=== PATIENT | male | born 1965 | race African-American/Black ===

== ENCOUNTER 2017-08-06 15:38 | Inpatient (IN) | payer OTHER ==
[2017-08-06 16:21] VITALS: BMI 29.7
--- NOTE | 2017-08-06 19:25 | HP ---
CIWA Score - CIWA Score Nausea/Vomitin-Mild Nausea/No Vomiting Muscle Tremors: 4-Moderate,w/Arms Extend Anxiety: 4-Mod. Anxious/Guarded Agitation: 4-Moderately Restless Paroxysmal Sweats: 1-Minimal Palms Moist Orientation: 0-Oriented Tacttile Disturbances: 0-None Auditory Disturbances: 0-None Visual Disturbances: 0-None Headache: 1-Very Mild CIWA-Ar Total Score: 15 Admission ROS BHS - HPI Chief Complaint: withdrawal sx Allergies/Adverse Reactions: Allergies Allergy/AdvReac Type Severity Reaction Status Date / Time No Known Allergies Allergy Verified 12/18/13 18:35 History of Present Illness: 51 years old male with long history of alcohol xanax cocaine marijuna nicotine dependence daugherty sasthma positive ppd and bipolar ii is admitted to detox Exam Limitations: No Limitations - Ebola screening Have you traveled outside of the country in the last 21 days: No (N) Have you had contact with anyone from an Ebola affected area: No Have you been sick,other than usual withdrawal symptoms: No Do you have a fever: No - Review of Systems Constitutional: Chills, Weight Stable EENT: reports: No Symptoms Reported Respiratory: reports: No Symptoms reported Cardiac: reports: No Symptoms Reported GI: reports: Nausea, Poor Fluid Intake, Abdominal cramping : reports: No Symptoms Reported Musculoskeletal: reports: Back Pain (2010) Integumentary: reports: No Symptoms Reported Neuro: reports: Tremors Endocrine: reports: No Symptoms Reported Hematology: reports: No Symptoms Reported Psychiatric: reports: Judgement Intact, Orientated x3, Anxious, Depressed Other Systems: Reviewed and Negative Patient History - Patient Medical History Hx Anemia: No Hx Asthma: Yes Hx Chronic Obstructive Pulmonary Disease (COPD): No Hx Cancer: No Hx Cardiac Disorders: No Hx Congestive Heart Failure: No Hx Hypertension: No Hx Hypercholesterolemia: No Hx Pacemaker: No HX Cerebrovascular Accident: No Hx Seizures: No Hx Dementia: No Hx Diabetes: No Hx Gastrointestinal Disorders: No Hx Liver Disease: No Hx Genitourinary Disorders: No Hx Sexually Transmitted Disorders: No Hx Renal Disease (ESRD): No Hx Thyroid Disease: No Hx Human Immunodeficiency Virus (HIV): No Hx Hepatitis C: No Hx Depression: No Hx Suicide Attempt: No Hx Bipolar Disorder: Yes Hx Schizophrenia: No - Patient Surgical History Past Surgical History: No Hx Neurologic Surgery: No Hx Cataract Extraction: No Hx Cardiac Surgery: No Hx Lung Surgery: No Hx Breast Surgery: No Hx Breast Biopsy: No Hx Abdominal Surgery: No Hx Appendectomy: No Hx Cholecystectomy: No Hx Genitourinary Surgery: No Hx Orthopedic Surgery: No - PPD History Previous Implant?: Yes Documented Results: Positive w/o proof Implanted On Prior [facility] Admission?: No PPD to be Administered?: No - Smoking Cessation Smoking history: Current every day smoker Have you smoked in the past 12 months: Yes Aproximately how many cigarettes per day: 3 Cigars Per Day: 0 Hx Chewing Tobacco Use: No Initiated information on smoking cessation: Yes 'Breaking Loose' booklet given: 08/06/17 - Substance & Tx. History Hx Alcohol Use: Yes Hx Substance Use: Yes Substance Use Type: Alcohol, Cocaine, Marijuana, Tranquilizers Hx Substance Use Treatment: Yes (2013) - Substances Abused Alcohol Route: Oral Frequency: Daily Amount used: LIQUOR- 3 PINTS, BEER- 2 SIX PACK Age of first use: 14 Date of Last Use: 08/06/17 Crack Route: Smoking Frequency: Daily Amount used: $200 Age of first use: 18 Date of Last Use: 08/06/17 Family Disease History - Family Disease History Family Disease History: Other: Father (no contact), Mother (ADDICTED TO ETOH AND ), Brother (no brother), Sister (anemia) Admission Physical Exam S - Vital Signs Vital Signs: Vital Signs - 24 hr 08/06/17 16:19 Temperature 96.7 F L Pulse Rate 78 Respiratory 18 Rate Blood Pressure 138/90 - Physical General Appearance: Yes: Nourished, Appropriately Dressed, Moderate Distress, Tremorous, Irritable, Sweating, Anxious HEENTM: Yes: Hearing grossly Normal, Normal ENT Inspection, Normocephalic, Normal Voice Respiratory: Yes: Chest Non-Tender, No Respiratory Distress, No Accessory Muscle Use, Wheezing, Expiration Neck: Yes: Supple, Crepetius Breast: Yes: No Discharge Cardiology: Yes: Regular Rhythm, Regular Rate, S1, S2 Abdominal: Yes: Normal Bowel Sounds, Non Tender, Soft Genitourinary: Yes: Within Normal Limits Back: Yes: Normal Inspection Musculoskeletal: Yes: full range of Motion, Gait Steady, Back pain Extremities: Yes: Normal Inspection, Normal Range of Motion, Tremors Neurological: Yes: Fully Oriented, Alert, Motor Strength 5/5, Normal Response, Depressed Affect Integumentary: Yes: Warm Lymphatic: Yes: Within Normal Limits - Diagnostic (1) Alcohol dependence with uncomplicated withdrawal Current Visit: Yes Status: Acute (2) Cannabis dependence, uncomplicated Current Visit: Yes Status: Chronic (3) Cocaine dependence, uncomplicated Current Visit: Yes Status: Chronic (4) Nicotine dependence Current Visit: Yes Status: Acute Qualifiers: Nicotine product type: cigarettes Substance use status: in withdrawal Qualified Code(s): F17.213 - Nicotine dependence, cigarettes, with withdrawal (5) Asthma Current Visit: Yes Status: Chronic Qualifiers: Asthma severity: moderate Asthma complication type: with status asthmaticus (6) Positive PPD, treated Current Visit: Yes Status: Resolved (7) Bipolar II disorder Current Visit: Yes Status: Suspected (8) Chronic back pain Current Visit: Yes Status: Chronic Qualifiers: Back pain location: low back pain Back pain laterality: bilateral Sciatica presence: without sciatica Qualified Code(s): M54.5 - Low back pain; G89.29 - Other chronic pain; G89.29 - Other chronic pain Cleared for Admission [facility] - Detox or Rehab [facility] Level of Care: Medically Managed Detox Regimen/Protocol: Librium [facility] Breath Alcohol Content Breath Alcohol Content: 0 Urine Drug Screen - Results Drug Screen Negative: No Urine Drug Screen Results: THC-Marijuana, RO-Cocaine, BZO-Benzodiazepines, TCA- Tricyclic Antidepress
[2017-08-06] MEDS ORDERED: guaiFENesin/D-METHORPHAN HB 10 ML UNIT-DOSE CUPS PO PRN (19:27)
[2017-08-06] MEDS ORDERED: P-EPHED 60MG/TRIPROLIDI 2.5MG TABLET PO PRN (19:27)
[2017-08-06] MEDS ORDERED: ACETAMINOPHEN 325 MG TABLET (FP) PO PRN (19:27)
[2017-08-06] MEDS ORDERED: MAGNESIUM HYDROX 2400MG/30ML ORAL SUSPENSION 30 ML CUP PO PRN (19:27)
[2017-08-06] MEDS ORDERED: MENTHOL/PHENOL 1 EACH UD MM PRN (19:27)
[2017-08-06] MEDS ORDERED: IBUPROFEN 400 MG TABLET (FP) PO PRN (19:27)
[2017-08-06] MEDS ORDERED: LOPERAMIDE HCL 2 MG CAPSULE PO PRN (19:27)
[2017-08-06] MEDS ORDERED: chlordiazePOXIDE HCL 25 MG CAPSULE PO PRN (19:27)
[2017-08-06] MEDS ORDERED: NICOTINE POLACRILEX 2 MG GUM BC PRN (19:27)
[2017-08-06] MEDS ORDERED: MAG HYDROX/AL HYDROX/SIMETH 30 ML UNIT-DOSE CUP PO PRN (19:27)
[2017-08-06] MEDS ORDERED: MAGNESIUM CITRATE 300 ML BOTTLE PO PRN (19:27)
[2017-08-06] MEDS ORDERED: ALBUTEROL SO4 18 GM HFA INHALER IH PRN (19:28)
[2017-08-06] MEDS ORDERED: BACLOFEN 10 MG TABLET (FP) PO PRN (19:31)
[2017-08-06] MEDS: chlordiazePOXIDE HCL 25 MG CAPSULE PO SCH (22:31)
[2017-08-06] MEDS: THIAMINE HCL 100 MG TABLET (FP) PO SCH (22:31)
[2017-08-06] MEDS: CLOTRIMAZOLE 1% CREAM 15 GM TUBE TP SCH (23:10)
[2017-08-06] MEDS: LIDOCAINE PATCH REMOVAL MC SCH (23:11)
[2017-08-07] MEDS: chlordiazePOXIDE HCL 25 MG CAPSULE PO SCH ×4 (05:24→22:13)
--- NOTE | 2017-08-07 07:42 | CONSULT ---
[facility] Psychiatric Consult - Data Date of interview: 08/07/17 Admission source: [facility] Identifying data: This is 51 years old male with history of p[sychiatric hospitalization, intoxicated with: Alcohol,, Cocaine, Cannabis and Nicotine Substance Abuse History: - Smoking Cessation. Smoking history: Current every day smoker. Have you smoked in the past 12 months: Yes. Aproximately how many cigarettes per day: 3. Cigars Per Day: 0. Hx Chewing Tobacco Use: No. Initiated information on smoking cessation: Yes. 'Breaking Loose' booklet given : 08/06/17. - Substance & Tx. History. Hx Alcohol Use: Yes. Hx Substance Use : Yes. Substance Use Type: Alcohol, Cocaine, Marijuana, Tranquilizers. Hx Substance Use Treatment: Yes (2013). - Substances Abused. Alcohol. Route: Oral. Frequency: Daily. Amount used: LIQUOR- 3 PINTS, BEER- 2 SIX PACK. Age of first use: 14. Date of Last Use: 08/06/17. Crack. Route: Smoking. Frequency: Daily. Amount used: $200. Age of first use: 18. Date of Last Use: 08/06/17 Medical History: Asthma PPD +hisotry, LBP Psychiatric History: PATIENT REPORTS HISTORY OF BIPOLAR DISORDER WITH MOST RECENT PSYCHIATRIC AMDISSION ON: 2015 AT [facility],. Patient reports taking prior to admission: Seroquel 200mg po qhs. Depakote 500mg po bid Physical/Sexual Abuse/Trauma History: Denies Additional Comment: Seroquel 200mg po qhs. Depakote 500mg po bid Mental Status Exam - Mental Status Exam Alert and Oriented to: Person Cognitive Function: Fair Patient Appearance: Unkempt Mood: Anxious Affect: Mood Congruent Patient Behavior: Cooperative Speech Pattern: Delayed Voice Loudness: Normal Thought Process: Goal Oriented Thought Disorder: Being Controlled Hallucinations: Denies Suicidal Ideation: Denies Homicidal Ideation: Denies Insight/Judgement: Fair Sleep: Difficulty falling asleep Appetite: Fair Muscle strength/Tone: Normal Gait/Station: Normal Additional Comments: Seroquel 200mg po qhs. Depakote 500mg po bid Psychiatric Findings - Problem List ([place] 1, 2,3) (1) Bipolar I disorder Current Visit: Yes Status: Suspected (2) Alcohol dependence with uncomplicated withdrawal Current Visit: Yes Status: Acute (3) Nicotine dependence Current Visit: Yes Status: Acute Qualifiers: Nicotine product type: cigarettes Substance use status: in withdrawal Qualified Code(s): F17.213 - Nicotine dependence, cigarettes, with withdrawal (4) Cannabis dependence, uncomplicated Current Visit: Yes Status: Chronic (5) Cocaine dependence, uncomplicated Current Visit: Yes Status: Chronic (6) Bipolar II disorder Current Visit: Yes Status: Suspected (7) Cocaine dependence Current Visit: No Status: Acute - Initial Treatment Plan Initial Treatment Plan: Seroquel 200mg po qhs. Depakote 500mg po bid
--- NOTE | 2017-08-07 10:03 | EKG ---
Test Reason : Blood Pressure : / mmHG Vent. Rate : 088 BPM Atrial Rate : 088 BPM P-R Int : 182 ms QRS Dur : 112 ms QT Int : 372 ms P-R-T Axes : 071 024 058 degrees QTc Int : 450 ms NORMAL SINUS RHYTHM NORMAL ECG NO PREVIOUS ECGS AVAILABLE Confirmed by BENNY FAIRCHILD MD ([id number]) on 08/07/2017 10:03:05 AM Referred By: Confirmed By:BENNY FAIRCHILD MD
[2017-08-07 10:12] LABS: MCH 31.4 pg (25.7-33.7); MEAN CELL VOLUME 95.2 fl (80-96); MEAN PLT VOLUME 8.2 fl (7.5-11.1); PLATELET COUNT 363 K/MM3 (134-434); RDW 15.1 % (11.9-15.9); WHITE BLOOD COUNT 6.5 K/mm3 (4.0-10.0)
[2017-08-07] MEDS: DIVALPROEX SODIUM 500 MG TABLET E.C. PO SCH ×2 (10:24→22:13)
[2017-08-07] MEDS: NAPROXEN 500 MG TABLET (FP) PO PRN (10:24)
[2017-08-07] MEDS: cloNIDine HCL 0.1 MG TABLET PO PRN (10:24)
[2017-08-07] MEDS: PRENATAL VITAMINS W/ FOLIC ACID TABLET (FP) PO SCH (10:24)
[2017-08-07] MEDS: CLOTRIMAZOLE 1% CREAM 15 GM TUBE TP SCH ×2 (10:25→22:15)
[2017-08-07] MEDS: NICOTINE 14 MG/24 HOURS TOPICAL PATCH TD SCH (10:25)
[2017-08-07] MEDS: LIDOCAINE 5% TOPICAL PATCH TP SCH (10:28)
[2017-08-07 10:46] LABS: PH,URINE 5.5 (5.0-8.0); URINE APPEARANCE CLEAR; URINE BILIRUBIN NEGATIVE (NEGATIVE); URINE BLOOD NEGATIVE (NEGATIVE); URINE COLOR YELLOW; URINE GLUCOSE (UA) NEGATIVE (NEGATIVE); URINE KETONE TRACE (NEGATIVE); URINE NITRITE NEGATIVE (NEGATIVE); URINE PROTEIN TRACE (NEGATIVE); URINE UROBILINOGEN 0.2 mg/dL (0.2-1.0)
[2017-08-07 10:52] LABS: ALBUMIN 3.3 g/dl (3.4-5.0); ALK PHOS 66 U/L (45-117); ANION GAP 6 (8-16); BILIRUBIN,TOTAL 0.5 mg/dL (0.2-1.0); CALCIUM 8.4 mg/dL (8.5-10.1); CO2 29 mmol/L (21-32); CREATININE 1.1 mg/dL (0.7-1.3); GLUCOSE,RANDOM 77 mg/dL (74-106); SGOT/AST 16 U/L (15-37); SGPT/ALT 20 U/L (12-78); TOT PROT 6.2 g/dl (6.4-8.2)
--- NOTE | 2017-08-07 12:51 | PN ---
[facility] CIWA - CIWA Score Nausea/Vomitin-No Nausea/No Vomiting Muscle Tremors: 4-Moderate,w/Arms Extend Anxiety: 4-Mod. Anxious/Guarded Agitation: 4-Moderately Restless Paroxysmal Sweats: 3 Orientation: 0-Oriented Tacttile Disturbances: 0-None Auditory Disturbances: 0-None Visual Disturbances: 0-None Headache: 0-None Present CIWA-Ar Total Score: 15 BHS Progress Note (SOAP) Subjective: irritable agitation sweats interrupted sleep Objective: 08/07/17 12:55 Vital Signs Temperature 97.7 F 08/07/17 10:00 Pulse Rate 73 08/07/17 10:00 Respiratory Rate 18 08/07/17 10:00 Blood Pressure 115/76 08/07/17 10:00 O2 Sat by Pulse Oximetry (%) Laboratory Tests 08/06/17 08/07/17 08/07/17 20:45 07:00 07:00 WBC 6.5 RBC 4.04 Hgb 12.7 Hct 38.5 MCV 95.2 MCH 31.4 MCHC 33.0 RDW 15.1 Plt Count 363 D MPV 8.2 Sodium 145 Potassium 4.6 Chloride 110 H Carbon Dioxide 29 Anion Gap 6 L BUN 13 D Creatinine 1.1 Creat Clearance w eGFR > 60 Random Glucose 77 Calcium 8.4 L Total Bilirubin 0.5 D AST 16 D ALT 20 D Alkaline Phosphatase 66 Total Protein 6.2 L Albumin 3.3 L Urine Color Yellow Urine Appearance Clear Urine pH 5.5 Ur Specific [place] 1.025 Urine Protein Trace H Urine Glucose (UA) Negative Urine Ketones Trace H Urine Blood Negative Urine Nitrite Negative Urine Bilirubin Negative Urine Urobilinogen 0.2 RPR Titer 08/07/17 07:00 WBC RBC Hgb Hct MCV MCH MCHC RDW Plt Count MPV Sodium Potassium Chloride Carbon Dioxide Anion Gap BUN Creatinine Creat Clearance w eGFR Random Glucose Calcium Total Bilirubin AST ALT Alkaline Phosphatase Total Protein Albumin Urine Color Urine Appearance Urine pH Ur Specific [place] Urine Protein Urine Glucose (UA) Urine Ketones Urine Blood Urine Nitrite Urine Bilirubin Urine Urobilinogen RPR Titer Nonreactive aaox3 ambulating no acute distress Assessment: 08/07/17 12:55 withdrawal sx Plan: continue detox increase fluids
[2017-08-07 21:13] LABS: URINE LEUK ESTERASE Negative (NEGATIVE)
[2017-08-07] MEDS: QUEtiapine FUMARATE 200 MG TABLET PO SCH (22:13)
[2017-08-07] MEDS: THIAMINE HCL 100 MG TABLET (FP) PO SCH (22:14)
[2017-08-07] MEDS: LIDOCAINE PATCH REMOVAL MC SCH (22:14)
[2017-08-08] MEDS: chlordiazePOXIDE HCL 25 MG CAPSULE PO SCH ×3 (05:28→17:37)
[2017-08-08] MEDS: LIDOCAINE 5% TOPICAL PATCH TP SCH (10:00)
[2017-08-08] MEDS: PRENATAL VITAMINS W/ FOLIC ACID TABLET (FP) PO SCH (10:32)
[2017-08-08] MEDS: NAPROXEN 500 MG TABLET (FP) PO PRN (10:32)
[2017-08-08] MEDS: DIVALPROEX SODIUM 500 MG TABLET E.C. PO SCH ×2 (10:32→22:23)
[2017-08-08] MEDS: cloNIDine HCL 0.1 MG TABLET PO PRN (10:32)
[2017-08-08] MEDS: NICOTINE 14 MG/24 HOURS TOPICAL PATCH TD SCH (10:35)
[2017-08-08] MEDS: CLOTRIMAZOLE 1% CREAM 15 GM TUBE TP SCH ×2 (10:54→22:23)
--- NOTE | 2017-08-08 12:35 | PN ---
[facility] CIWA - CIWA Score Nausea/Vomitin-No Nausea/No Vomiting Muscle Tremors: 3 Anxiety: 2 Agitation: 3 Paroxysmal Sweats: 3 Orientation: 0-Oriented Tacttile Disturbances: 0-None Auditory Disturbances: 0-None Visual Disturbances: 0-None Headache: 0-None Present CIWA-Ar Total Score: 11 [facility] Progress Note (SOAP) Subjective: irritable agitation tired Objective: 08/08/17 12:34 Vital Signs Temperature 97.7 F 08/08/17 09:28 Pulse Rate 68 08/08/17 09:28 Respiratory Rate 18 08/08/17 09:28 Blood Pressure 122/83 08/08/17 09:28 O2 Sat by Pulse Oximetry (%) Laboratory Tests 08/06/17 08/07/17 08/07/17 20:45 07:00 07:00 WBC 6.5 RBC 4.04 Hgb 12.7 Hct 38.5 MCV 95.2 MCH 31.4 MCHC 33.0 RDW 15.1 Plt Count 363 D MPV 8.2 Sodium 145 Potassium 4.6 Chloride 110 H Carbon Dioxide 29 Anion Gap 6 L BUN 13 D Creatinine 1.1 Creat Clearance w eGFR > 60 Random Glucose 77 Calcium 8.4 L Total Bilirubin 0.5 D AST 16 D ALT 20 D Alkaline Phosphatase 66 Total Protein 6.2 L Albumin 3.3 L Urine Color Yellow Urine Appearance Clear Urine pH 5.5 Ur Specific [place] 1.025 Urine Protein Trace H Urine Glucose (UA) Negative Urine Ketones Trace H Urine Blood Negative Urine Nitrite Negative Urine Bilirubin Negative Urine Urobilinogen 0.2 Ur Leukocyte Esterase Negative Valproic Acid RPR Titer 08/07/17 08/07/17 07:00 07:00 WBC RBC Hgb Hct MCV MCH MCHC RDW Plt Count MPV Sodium Potassium Chloride Carbon Dioxide Anion Gap BUN Creatinine Creat Clearance w eGFR Random Glucose Calcium Total Bilirubin AST ALT Alkaline Phosphatase Total Protein Albumin Urine Color Urine Appearance Urine pH Ur Specific [place] Urine Protein Urine Glucose (UA) Urine Ketones Urine Blood Urine Nitrite Urine Bilirubin Urine Urobilinogen Ur Leukocyte Esterase Valproic Acid 8.320 L RPR Titer Nonreactive aaox3 ambulating no acute distress Assessment: 08/08/17 12:35 withdrawal sx Plan: continue detox
[2017-08-08] MEDS: QUEtiapine FUMARATE 200 MG TABLET PO SCH (22:23)
[2017-08-08] MEDS: chlordiazePOXIDE 5 MG CAPSULE PO SCH (22:23)
[2017-08-08] MEDS: THIAMINE HCL 100 MG TABLET (FP) PO SCH (22:23)
[2017-08-08] MEDS: LIDOCAINE PATCH REMOVAL MC SCH (22:55)
[2017-08-09] MEDS: chlordiazePOXIDE 5 MG CAPSULE PO SCH ×3 (06:24→18:08)
[2017-08-09] MEDS: NAPROXEN 500 MG TABLET (FP) PO PRN (07:12)
[2017-08-09] MEDS: CLOTRIMAZOLE 1% CREAM 15 GM TUBE TP SCH ×2 (10:23→22:32)
[2017-08-09] MEDS: DIVALPROEX SODIUM 500 MG TABLET E.C. PO SCH ×2 (10:23→22:31)
[2017-08-09] MEDS: NICOTINE 14 MG/24 HOURS TOPICAL PATCH TD SCH (10:23)
[2017-08-09] MEDS: LIDOCAINE 5% TOPICAL PATCH TP SCH (10:23)
[2017-08-09] MEDS: cloNIDine HCL 0.1 MG TABLET PO PRN (10:24)
[2017-08-09] MEDS: PRENATAL VITAMINS W/ FOLIC ACID TABLET (FP) PO SCH (10:24)
--- NOTE | 2017-08-09 10:51 | PN ---
BHS Progress Note (SOAP) Subjective: nausea, sweats, interrupted sleep-, anxiety, tremors Objective: 08/09/17 10:50 Vital Signs - 8 hr 08/09/17 08/09/17 08/09/17 03:30 06:38 10:00 Temperature 98.2 F 99 F Pulse Rate 89 88 Respiratory 18 18 20 Rate Blood Pressure 127/71 120/67 Laboratory Tests 08/06/17 08/07/17 08/07/17 20:45 07:00 07:00 WBC 6.5 RBC 4.04 Hgb 12.7 Hct 38.5 MCV 95.2 MCH 31.4 MCHC 33.0 RDW 15.1 Plt Count 363 D MPV 8.2 Sodium 145 Potassium 4.6 Chloride 110 H Carbon Dioxide 29 Anion Gap 6 L BUN 13 D Creatinine 1.1 Creat Clearance w eGFR > 60 Random Glucose 77 Calcium 8.4 L Total Bilirubin 0.5 D AST 16 D ALT 20 D Alkaline Phosphatase 66 Total Protein 6.2 L Albumin 3.3 L Urine Color Yellow Urine Appearance Clear Urine pH 5.5 Ur Specific [place] 1.025 Urine Protein Trace H Urine Glucose (UA) Negative Urine Ketones Trace H Urine Blood Negative Urine Nitrite Negative Urine Bilirubin Negative Urine Urobilinogen 0.2 Ur Leukocyte Esterase Negative Valproic Acid RPR Titer 08/07/17 08/07/17 07:00 07:00 WBC RBC Hgb Hct MCV MCH MCHC RDW Plt Count MPV Sodium Potassium Chloride Carbon Dioxide Anion Gap BUN Creatinine Creat Clearance w eGFR Random Glucose Calcium Total Bilirubin AST ALT Alkaline Phosphatase Total Protein Albumin Urine Color Urine Appearance Urine pH Ur Specific [place] Urine Protein Urine Glucose (UA) Urine Ketones Urine Blood Urine Nitrite Urine Bilirubin Urine Urobilinogen Ur Leukocyte Esterase Valproic Acid 8.320 L RPR Titer Nonreactive Assessment: 08/09/17 10:51 withdrwaal sx - cont detox, fluids.
[2017-08-09] MEDS: QUEtiapine FUMARATE 200 MG TABLET PO SCH (22:31)
[2017-08-09] MEDS: THIAMINE HCL 100 MG TABLET (FP) PO SCH (22:31)
[2017-08-09] MEDS: LIDOCAINE PATCH REMOVAL MC SCH (22:33)
[2017-08-09] MEDS: chlordiazePOXIDE HCL 10 MG CAPSULE PO SCH (22:33)
[2017-08-10] MEDS: chlordiazePOXIDE HCL 10 MG CAPSULE PO SCH (06:25)
[2017-08-10 06:28] VITALS: BP 109/95; PULSE 83; TEMP 98.4
--- NOTE | 2017-08-10 11:11 | DS ---
[facility] Detox Discharge Summary Admission Date: 08/06/17 Discharge Date: 08/10/17 - History Present History: Alcohol Dependence, Cannabis Dependence, Cocaine Dependence Pertinent Past History: asthma Mood disorder - Physical Exam Results Vital Signs: Vital Signs Temperature 98.4 F 08/10/17 06:00 Pulse Rate 83 08/10/17 06:00 Respiratory Rate 18 08/10/17 06:00 Blood Pressure 109/95 08/10/17 06:00 O2 Sat by Pulse Oximetry (%) Pertinent Admission Physical Exam Findings: withdrawal sx Laboratory Last Values WBC 6.5 K/mm3 (4.0-10.0) 08/07/17 07:00 RBC 4.04 M/mm3 (4.00-5.60) 08/07/17 07:00 Hgb 12.7 GM/dL (11.7-16.9) 08/07/17 07:00 Hct 38.5 % (35.4-49) 08/07/17 07:00 MCV 95.2 fl (80-96) 08/07/17 07:00 MCH 31.4 pg (25.7-33.7) 08/07/17 07:00 MCHC 33.0 g/dl (32.0-35.9) 08/07/17 07:00 RDW 15.1 % (11.9-15.9) 08/07/17 07:00 Plt Count 363 K/MM3 (134-434) D 08/07/17 07:00 MPV 8.2 fl (7.5-11.1) 08/07/17 07:00 Sodium 145 mmol/L (136-145) 08/07/17 07:00 Potassium 4.6 mmol/L (3.5-5.1) 08/07/17 07:00 Chloride 110 mmol/L (98-107) H 08/07/17 07:00 Carbon Dioxide 29 mmol/L (21-32) 08/07/17 07:00 Anion Gap 6 (8-16) L 08/07/17 07:00 BUN 13 mg/dL (7-18) D 08/07/17 07:00 Creatinine 1.1 mg/dL (0.7-1.3) 08/07/17 07:00 Creat Clearance w eGFR > 60 (>60) 08/07/17 07:00 Random Glucose 77 mg/dL (74-106) 08/07/17 07:00 Calcium 8.4 mg/dL (8.5-10.1) L 08/07/17 07:00 Total Bilirubin 0.5 mg/dL (0.2-1.0) D 08/07/17 07:00 AST 16 U/L (15-37) D 08/07/17 07:00 ALT 20 U/L (12-78) D 08/07/17 07:00 Alkaline Phosphatase 66 U/L (45-117) 08/07/17 07:00 Total Protein 6.2 g/dl (6.4-8.2) L 08/07/17 07:00 Albumin 3.3 g/dl (3.4-5.0) L 08/07/17 07:00 Urine Color Yellow 08/06/17 20:45 Urine Appearance Clear 08/06/17 20:45 Urine pH 5.5 (5.0-8.0) 08/06/17 20:45 Ur Specific [place] 1.025 (1.001-1.035) 08/06/17 20:45 Urine Protein Trace (NEGATIVE) H 08/06/17 20:45 Urine Glucose (UA) Negative (NEGATIVE) 08/06/17 20:45 Urine Ketones Trace (NEGATIVE) H 08/06/17 20:45 Urine Blood Negative (NEGATIVE) 08/06/17 20:45 Urine Nitrite Negative (NEGATIVE) 08/06/17 20:45 Urine Bilirubin Negative (NEGATIVE) 08/06/17 20:45 Urine Urobilinogen 0.2 mg/dL (0.2-1.0) 08/06/17 20:45 Ur Leukocyte Esterase Negative (NEGATIVE) 08/06/17 20:45 Valproic Acid 8.320 ug/ml (50-100) L 08/07/17 07:00 RPR Titer Nonreactive (NONREACTIVE) 08/07/17 07:00 labs noted. Depakote level noted, psychiatrist aware - Treatment Hospital Course: Detox Protocol Followed, Detoxed Safely, Responded well, Discharged Condition Good, Rehab Referral Accepted Patient has Accepted a Rehab Referral to: [facility] psych - Medication Discharge Medications: Ambulatory Orders Divalproex *ER* [Depakote *ER* -] 500 mg PO BID #60 tablet.sa 08/07/17 Quetiapine Fumarate [Seroquel -] 200 mg PO HS #30 tab 08/07/17 Albuterol Sulfate Inhaler - [Ventolin HFA Inhaler -] 2 inh PO Q4H PRN #1 inhaler 08/09/17 Salmeterol/Fluticasone [Advair 250Mcg/50Mcg -] 1 inh IH BID #1 inh 08/09/17 - Diagnosis (1) Alcohol dependence with uncomplicated withdrawal Status: Acute (2) Nicotine dependence Status: Acute Qualifiers: Nicotine product type: cigarettes Substance use status: in withdrawal Qualified Code(s): F17.213 - Nicotine dependence, cigarettes, with withdrawal (3) Asthma Status: Chronic Qualifiers: Asthma severity: moderate Asthma complication type: with status asthmaticus (4) Cannabis dependence, uncomplicated Status: Chronic (5) Cocaine dependence, uncomplicated Status: Chronic (6) Bipolar I disorder Status: Suspected (7) Bipolar II disorder Status: Suspected - AMA Did Patient Leave Against Medical Advice: No
== END 2017-08-10 09:25 | disposition home or self-care (01) | DRG 774 ==
LOC: YASAS 15:38 → Y6N 19:53
PROVIDERS: ADMIT Internal Medicine; ATTEND Internal Medicine
PROC: HZ2ZZZZ Detoxification Services for Substance Abuse Treatment (ICD-10-PCS; principal; 2017-08-06)
DX: F10.230 Alcohol dependence with withdrawal, uncomplicated (principal); F14.20 Cocaine dependence, uncomplicated; F12.20 Cannabis dependence, uncomplicated; F17.213 Nicotine dependence, cigarettes, with withdrawal; F31.81 Bipolar II disorder; F31.89 Other bipolar disorder; J45.40 Moderate persistent asthma, uncomplicated; M54.5 Low back pain; G89.29 Other chronic pain; R76.11 Nonspecific reaction to tuberculin skin test without active tuberculosis
CPT/HCPCS: 36415; 71020-TC; 80053; 80164; 81003; 85027; 86593; 93005; 93010; J0475